=== PATIENT | female | born 1955 | race Caucasian/White ===

== ENCOUNTER 2017-02-26 13:23 | Emergency (ER) | payer OTHER ==
[2017-02-26 15:16] LABS: BASOPHILS % 1.7 (0.0-1.5); EOSINOPHILS % 2.4 % (0.0-6.8); MEAN CORPUSCULAR HEMOGLOBIN 29.5 pg (28.0-34.0); MEAN CORPUSCULAR VOLUME 88.9 fl (80.0-100.0); MONOCYTES % 5.8 % (0.0-11.0); NEUTROPHILS # 4.7 # k/uL (1.4-7.7)
[2017-02-26 15:28] VITALS: BP 124/66
[2017-02-26 15:33] LABS: eGFR (African) > 60; eGFR (Non-African) > 60
[2017-02-26] MEDS ORDERED: PIPERACILLIN SODIUM/TAZOBACTAM 3.375 GM in 0.9 % SODIUM CHLORIDE 50 ML IV ONE (15:52)
--- NOTE | 2017-02-26 15:56 | ED Physician Documentation ---
Skin Rash - HISTORIAN Historian: patient - HPI Stated Complaint: cat bite right hand 5th digit Chief Complaint: Skin Rash Onset: days ago (02/22/2017) Timing: worse Duration: worse Location: RUE (right hand) Where: other (at patient's mother's house in [place], [place]) Context: Other Exposure: other (cat bite) Further Comments: yes (62 year old female patient present with cat bite which occurred on to right hand 5th digit. Patient is traveling from [place] to [place]. Patient was packing her Mom to move from [place] to [place]. Cat became angry and bit patient. Cat has not had vaccines; stays indoors at all times.) - ROS CONST: denies: recent illness, fever, sweating, chills CVS/RESP: none EYES/ENT: none GI/: none MS/SKIN/LYMPH: joint pain (RIght 5th digit). denies: calf pain, neck pain, leg swelling, swollen glands, leg pain, back pain, ankle swelling NEURO/PSYCH: none - PAST HX Past History: other (hypothyroidism; ovarian cyst) Surgeries/Procedures: Yes (cholecystectomy) Allergies/Adverse Reactions: Allergies Allergy/AdvReac Type Severity Reaction Status Date / Time codeine AdvReac No Reaction Verified 02/26/17 14:53 Home Medications: Ambulatory Orders Medication Instructions Recorded Amoxicillin/Potassium Clav 1 each PO BID #20 tablet 02/26/17 [Augmentin 875-125 Tablet] Thyroid,Pork [Nature-Throid] 81.25 mg PO DAILY 02/26/17 - SOCIAL HX Smoking History: cigarettes - FAMILY HX Family History: denies: none - VITAL SIGNS Vital Signs: Vital Signs Temp Pulse Resp BP Pulse Ox 98.4 F 80 18 124/66 96 02/26/17 16:35 02/26/17 16:35 02/26/17 16:35 02/26/17 16:35 02/26/17 16:35 - REVIEWED ASSESSMENTS Nursing Assessment Reviewed: Yes Vitals Reviewed: Yes Progress - Progress Progress: Patient does not want rabies injections. Will give dose of IV Zosyn and start augmentin po bid. Strongly encourage patient to follow up on arrival home with PCP. ED Results Lab/Radiology - Lab Results Lab Results: Lab Results 02/26/17 02/26/17 15:12 15:12 WBC 7.00 K/ul K/ul (4.00-12.00) RBC 5.01 M/ul M/ul (3.90-5.20) Hgb 14.8 g/dL g/dL (12.0-16.0) Hct 44.5 % % (34.5-46.5) MCV 88.9 fl fl (80.0-100.0) MCH 29.5 pg pg (28.0-34.0) MCHC 33.2 g/dL g/dL (30.0-36.0) RDW 13.2 % % (11.3-14.3) Plt Count 203 K/mm3 K/mm3 (130-400) Neut % (Auto) 67.4 % % (39.0-79.0) Lymph % (Auto) 21.5 % % (16.0-50.0) Gilchrist % (Auto) 5.8 % % (0.0-11.0) Eos % (Auto) 2.4 % % (0.0-6.8) Baso % (Auto) 1.7 H (0.0-1.5) Neut # 4.7 # k/uL # k/uL (1.4-7.7) Lymph # 1.5 # k/uL # k/uL (0.6-4.0) Gilchrist # 0.4 # k/uL # k/uL (0.0-0.9) Eos # 0.2 # k/uL # k/uL (0.0-0.6) Baso # 0.1 # k/uL # k/uL (0.0-0.5) Reactive Lymphs % 1.3 % % (0.0-5.0) Reactive Lymphs # 0.1 # k/uL # k/uL (0.0-0.8) Sodium 137 mmol/L mmol/L (136-145) Potassium 4.0 mmol/L mmol/L (3.5-5.0) Chloride 100 mmol/L mmol/L (98-110) Carbon Dioxide 29 mmol/L mmol/L (20-32) BUN 11 mg/dL mg/dL (10-26) Creatinine 0.6 mg/dL mg/dL (0.4-1.5) Estimated Creat Clear 144 Est GFR ( Amer) > 60 (60 - ) Est GFR (Non-Af Amer) > 60 (60 - ) Glucose 112 mg/dL H mg/dL (70-99) Calcium 9.8 mg/dL mg/dL (8.5-10.5) Total Bilirubin 0.6 mg/dL mg/dL (0.2-1.2) AST 36 U/L U/L (0-41) ALT 61 U/L H U/L (0-45) Alkaline Phosphatase 77 U/L U/L (46-116) Total Protein 7.9 g/dL g/dL (6.0-8.5) Albumin 4.9 g/dL g/dL (3.0-5.5) - Radiology Radiology Impressions: Right hand - three views Clinical history: Injury from a cat bite on the fifth digit. Swelling and redness. Findings: Examination of the right hand in palmar, lateral and oblique views demonstrates soft tissue swelling in the fifth digit. There is no evident fracture or dislocation and no lytic or blastic lesion. There is no opaque foreign body in the soft tissues or soft tissue gas. Impression: 1. Soft tissue swelling in the fifth digit. Electronically signed on February 26, 2017 3:41:15 PM CDT by: Rowdy Hansen - Orders Orders: ED Orders Category Date Time Status Place Saline Lock/IV NOW Care 02/26/17 14:51 Active HAND 3 VIEWS OR MORE [RAD] Stat Exams 02/26/17 Completed CBC/PLATELET/DIFF Stat Lab 02/26/17 15:12 Completed CMP Stat Lab 02/26/17 15:12 Completed Diph,Pertuss(Acell),Tet Vac/Pf [Adacel] Med 02/26/17 16:15 Discontinued 0.5 ml IM .ONCE ONE Piperacillin Sodium/Tazobactam [Zosyn] 3.375 gm Med 02/26/17 15:52 Discontinued 0.9 % Sodium Chloride [Sodium Chloride] 50 ml IV NOW Skin Rash Physical Exam - EXAM General Appearance: mild distress Skin: warm,dry, erythema (right hand), other (Right hand with edema and erythema ; scabs noted on right 5th digit; no drainage. ) Location: other (right hand) Character: erythematous Symptoms: warmth, tenderness, swelling. No: weeping EENT: eyes nml inspection Respiratory: no resp distress, chest non-tender, breath sounds normal CVS: reg. rate & rhythm, heart sounds nml Abdomen: non-tender, no organomegaly, nml bowel sounds, no distention Neuro/Psych: oriented x3, CN's nml as tested, motor nml, sensation nml, mood/ affect nml Discharge Clincal Impression: Cellulitis of right hand Cat bite of finger Qualifiers: Encounter type: initial encounter Qualified Code(s): S61.259A - Open bite of unspecified finger without damage to nail, initial encounter; W55.01XA - Bitten by cat, initial encounter Prescriptions: Amoxicillin/Potassium Clav [Augmentin 875-125 Tablet] 1 each PO BID #20 tablet Referrals: Primary Doctor,No [Primary Care Provider] - 2 Days Additional Instructions: superintendent institution your prescription and start it today. See your doctor as soon as you arrive home for a wound recheck. You need to be re-checked in 1-2 days. Go to the ER if your symptoms become worse, you have red streaks up your arm, or pain increases. Home Medications: Ambulatory Orders Amoxicillin/Potassium Clav [Augmentin 875-125 Tablet] 1 each PO BID #20 tablet 02/26/17 Thyroid,Pork [Nature-Throid] 81.25 mg PO DAILY 02/26/17 Condition: Stable Disposition: 01 HOME, SELF-CARE Decision to Admit: NO Decision Time: 16:20
[2017-02-26] MEDS ORDERED: DIPH,PERTUSS(ACELL),TET VAC/PF 0.5 ML DISP.SYRIN IM ONE (16:15)
--- NOTE | 2017-02-26 16:44 | Diagnostic Imaging Report ---
[facility] [address] [facility] [address] Report Submission Date: February 26, 2017 3:41:15 PM CDT Patient Study Name: TRENA ALATORRE Date: February 26, 2017 3:01:42 PM CDT Modality Type: CR Gender: F Description: UPPER EXTREMITY : 59 Institution: [facility] Physician: VIPUL MCNEILL (EMS DIRECTOR) - ER Right hand - three views Clinical history: Injury from a cat bite on the fifth digit. Swelling and redness. Findings: Examination of the right hand in palmar, lateral and oblique views demonstrates soft tissue swelling in the fifth digit. There is no evident fracture or dislocation and no lytic or blastic lesion. There is no opaque foreign body in the soft tissues or soft tissue gas. Impression: 1. Soft tissue swelling in the fifth digit. Electronically signed on February 26, 2017 3:41:15 PM CDT by: Rowdy WALTER
== END 2017-02-26 16:35 | disposition home or self-care (01) ==
LOC: ED 13:23
DX: S61.451A Open bite of right hand, initial encounter (principal); L03.113 Cellulitis of right upper limb; W55.01XA Bitten by cat, initial encounter; Y93.9 Activity, unspecified; Y92.9 Unspecified place or not applicable; Y99.9 Unspecified external cause status
CPT/HCPCS: 73130; 80053; 85025; 90715; J2543; 90471; 99283; S1016